=== PATIENT | female | born 1955 | race Caucasian/White ===

== ENCOUNTER 2021-05-10 10:00 | Day surgery (SDC) | payer MEDICARE, BC ==
[~2021-05-10 10:00] MED LIST: Lactated Ringers 1,000 ML IV SCH; Sodium Chloride 0.9% 10 ML Syringe FLUSH PRN
[2021-05-10] MEDS ORDERED: Propofol 200 MG/20 ML SDV ONE ×2 (10:37→10:58)
[2021-05-10 12:06] VITALS: BP 128/72; PULSE 63
--- NOTE | 2021-05-10 13:55 | OR ---
DATE OF SURGERY: 05/10/2021. REFERRING PROVIDER: Parris Sweet DO PRE-OPERATIVE DIAGNOSIS: Screening colonoscopy. The patient does have prior history of colon polyps. Her last colonoscopy done in 12/2013 revealed tortuous redundant colon, but otherwise normal. She was told to repeat in 7 years. There is a positive family history of colon cancer in a grandfather. The patient does have some chronic constipation. POST-OPERATIVE DIAGNOSES: 1. Left-sided [id number]-ev-iuxtzhoa diverticulosis. 2. Tortuous redundant colon. This did require some abdominal pressure and scope maneuvering to obtain cecal intubation. PROCEDURE: Colonoscopy. SURGEON: Faustino De Jesus M.D. ANESTHESIA: Monitored anesthesia care. BOWEL PREP: Good. Natali is a 66-year-old female who was brought to the endoscopy suite after discussing risks and benefits of the procedure. Informed consent was obtained for conscious sedation and colonoscopy with or without biopsy and/or polypectomy. We also discussed possibility of missed lesions. Pre-procedure exam was unremarkable. IV, oxygen, and monitors were placed. The patient was placed in the left lateral decubitus position. Sedation was administered and a digital rectal exam was performed and unremarkable. Colonoscope was passed into the rectum and slowly advanced all the way to the cecum. The patient did have a tortuous redundant colon which did require some scope maneuvering as well as abdominal pressure to obtain cecal intubation. Cecum was viewed and photographed. The colonoscope was slowly withdrawn and the mucosa was closed observed in a direct circumferential manner. The ascending colon was unremarkable. The transverse colon was unremarkable. The descending colon and sigmoid colon were remarkable for [id number] diverticulosis. Retroflexion was performed and rectal mucosa was unremarkable. Scope was removed. The patient tolerated the procedure well. The patient was monitored until that baseline status. Discharge instructions were reviewed and the patient was discharged in good condition. COMPLICATIONS: None. TOTAL TIME: 27 minutes. ESTIMATED BLOOD LOSS: None. RECOMMENDATIONS/FOLLOW-UP: Given the fact that her last 2 colonoscopies have been normal, she is good for 10 years and then can consider repeating at that time depending on health status and personal preference. I would like to kindly thank Parris Sweet for this referral. DMB: 05/10/2021 12:44:20 MODL: 05/10/2021 13:29:19 /[id number]
== END 2021-05-10 12:25 | disposition home or self-care (01) ==
LOC: VM.SDS 10:00
PROVIDERS: ATTEND Family Medicine
DX: Z12.11 Encounter for screening for malignant neoplasm of colon (principal); K63.89 Other specified diseases of intestine; K57.30 Diverticulosis of large intestine without perforation or abscess without bleeding; E03.9 Hypothyroidism, unspecified; E78.5 Hyperlipidemia, unspecified; M54.5 Low back pain; Z86.010 Personal history of colon polyps; Z80.0 Family history of malignant neoplasm of digestive organs; Z88.0 Allergy status to penicillin
CPT/HCPCS: 00812; J2704; J7120

== ENCOUNTER 2023-04-28 11:59 | Emergency (ER) | payer MEDICARE, BC ==
[2023-04-28 12:23] LABS: BASOPHILS PERCENT AUTO 0.3 % (0.2-1.2); EOSINOPHILS PERCENT AUTO 0.4 % (0.0-4.0); HEMATOCRIT 39.3 % (33.0-47.0); HEMOGLOBIN 13.6 g/dL (12.0-16.0); IMMATURE GRAN ABSOLUTE AUTO 0.01 x10^3/uL (0.00-0.07); LYMPHOCYTES PERCENT AUTO 9.2 % (25.0-50.0); MEAN CORPUSCULAR HEMOGLOBIN 32.4 pg (26.0-32.0); MEAN CORPUSCULAR HGB CONC 34.6 g/dL (32.0-36.0); MEAN CORPUSCULAR VOLUME 93.6 fL (78.0-93.0); MONOCYTES ABSOLUTE AUTO 0.7 x10^3/uL (0.0-0.8); MONOCYTES PERCENT AUTO 6.5 % (2.0-11.0); NEUTROPHILS ABSOLUTE AUTO 8.8 x10^3/uL (1.8-7.7); NEUTROPHILS PERCENT AUTO 83.5 % (50.0-80.0); PLATELET COUNT,PLT 216 x10^3/uL (130-400); WHITE BLOOD CELL COUNT,WBC 10.5 x10^3/uL (4.0-10.0)
[2023-04-28 12:47] LABS: A/G RATIO 0.97; ALANINE AMINOTRANSFERASE,ALT 22 U/L (14-59); ALBUMIN 3.8 g/dL (3.4-5.0); ALKALINE PHOSPHATASE 98 U/L (46-116); ANION GAP 11.8 mmol/L (5-15); ASPARTATE AMNIOTRANSFERASE,AST 25 U/L (15-37); BILIRUBIN TOTAL 0.6 mg/dL (0.2-1.0); BLOOD UREA NITROGEN,BUN 18 mg/dL (7-18); C-REACTIVE PROTEIN 1.08 mg/dL (<=0.30); CALCIUM 9.6 mg/dL (8.5-10.1); CARBON DIOXIDE,CO2 29 mmol/L (21-32); CHLORIDE,CL 103 mmol/L (98-107); CREATINE KINASE,CK 58 U/L (26-192); CREATININE 1.1 mg/dL (0.55-1.02); ESTIMATED GFR 54 mL/min (>=60); GLUCOSE RANDOM 107 mg/dL (70-99); POTASSIUM,K 3.8 mmol/L (3.5-5.1); PROTEIN TOTAL,TP 7.7 g/dL (6.4-8.2); SODIUM,NA 140 mmol/L (136-145); URIC ACID 4.7 mg/dL (2.6-6.0)
[2023-04-28 13:10] VITALS: BP 118/57; PULSE 88
[2023-04-28 13:15] LABS: SEDIMENTATION RATE AUTO 22 mm/hr (0-20)
== END 2023-04-28 13:29 | disposition home or self-care (01) ==
LOC: VM.ED 11:59 → SUPCPDRO 11:59 → VM.ED 13:29
DX: M25.562 Pain in left knee (principal); Z79.82 Long term (current) use of aspirin
CPT/HCPCS: 36415; 80053; 82550; 83605; 83735; 84145; 84550; 85025; 85652; 86140; 99283

== ENCOUNTER 2024-10-29 08:03 | Emergency (ER) | payer MEDICARE, BC ==
[2024-10-29 09:50] VITALS: BP 118/78; PULSE 97
== END 2024-10-29 09:12 | disposition home or self-care (01) ==
LOC: VM.ED 08:03
DX: J06.9 Acute upper respiratory infection, unspecified (principal); E78.00 Pure hypercholesterolemia, unspecified; E03.9 Hypothyroidism, unspecified; M19.90 Unspecified osteoarthritis, unspecified site; Z88.0 Allergy status to penicillin; Z88.1 Allergy status to other antibiotic agents; Z79.82 Long term (current) use of aspirin; Z79.52 Long term (current) use of systemic steroids; Z79.890 Hormone replacement therapy; Z79.899 Other long term (current) drug therapy
CPT/HCPCS: 71045; 87428-QW; 99284

== ENCOUNTER 2025-06-23 10:30 | Day surgery (SDC) | payer MEDICARE, BC ==
[~2025-06-23 10:30] MED LIST changes: -Lactated Ringers 1,000 ML IV SCH; +Propofol 200 MG/20 ML SDV ONE; -Sodium Chloride 0.9% 10 ML Syringe FLUSH PRN; +fentaNYL 100 MCG/2 ML SDV ONE
[2025-06-23] MEDS: Lactated Ringers 1,000 ML IV SCH (11:08)
[2025-06-23 12:49] VITALS: BP 120/60; PULSE 71
== END 2025-06-23 13:04 | disposition home or self-care (01) ==
LOC: VM.SDS 10:30
PROVIDERS: ATTEND Family Medicine
DX: K29.50 Unspecified chronic gastritis without bleeding (principal); E03.9 Hypothyroidism, unspecified; N18.31 Chronic kidney disease, stage 3a; E78.00 Pure hypercholesterolemia, unspecified; Z88.0 Allergy status to penicillin; Z88.8 Allergy status to other drugs, medicaments and biological substances; Z79.899 Other long term (current) drug therapy; Z79.890 Hormone replacement therapy
CPT/HCPCS: 00731; 88305; 99100; J2704; J3010; J7120

== ENCOUNTER 2025-07-14 15:51 | Emergency (ER) | payer MEDICARE, BC ==
[2025-07-14] MEDS ORDERED: Sodium Chloride 0.9% 10 ML Syringe FLUSH PRN (15:56)
[2025-07-14 15:57] VITALS: BP 115/59; PULSE 90
[2025-07-14 16:06] LABS: BASOPHILS ABSOLUTE AUTO 0.0 x10^3/uL (0.0-0.2); BASOPHILS PERCENT AUTO 0.0 % (0.2-1.2); EOSINOPHILS ABSOLUTE AUTO 0.0 x10^3/uL (0.0-0.5); EOSINOPHILS PERCENT AUTO 0.0 % (0.0-4.0); IMMATURE GRAN ABSOLUTE AUTO 0.00 x10^3/uL (0.00-0.07); IMMATURE GRAN PERCENT AUTO 0.00 % (0.00-0.43); LYMPHOCYTES ABSOLUTE AUTO 0.5 x10^3/uL (1.0-4.8); LYMPHOCYTES PERCENT AUTO 7.3 % (25.0-50.0); MONOCYTES ABSOLUTE AUTO 0.3 x10^3/uL (0.0-0.8); MONOCYTES PERCENT AUTO 4.4 % (2.0-11.0); NEUTROPHILS ABSOLUTE AUTO 6.2 x10^3/uL (1.8-7.7); PLATELET COUNT,PLT 140 x10^3/uL (130-400); RED BLOOD CELL COUNT 4.14 x10^6/uL (4.00-5.50); WHITE BLOOD CELL COUNT,WBC 7.0 x10^3/uL (4.0-10.0)
[2025-07-14] MEDS: Lactated Ringers 1,000 ML IV ONE (16:09)
[2025-07-14] MEDS: Ondansetron 4 MG/2 ML SDV IVPUSH ONE (16:09)
[2025-07-14 16:14] LABS: NEUTROPHILS PERCENT AUTO 88.3 % (50.0-80.0)
[2025-07-14 16:23] LABS: A/G RATIO 0.78; ALANINE AMINOTRANSFERASE,ALT 20 U/L (14-59); ASPARTATE AMNIOTRANSFERASE,AST 31 U/L (15-37); BILIRUBIN TOTAL 0.5 mg/dL (0.2-1.0); BLOOD UREA NITROGEN,BUN 22 mg/dL (7-18); CARBON DIOXIDE,CO2 26 mmol/L (21-32); CHLORIDE,CL 97 mmol/L (98-107); CREATININE 1.2 mg/dL (0.55-1.02); ESTIMATED GFR 48 mL/min (>=60); GLUCOSE RANDOM 102 mg/dL (70-99); POTASSIUM,K 3.6 mmol/L (3.5-5.1); PROTEIN TOTAL,TP 7.3 g/dL (6.4-8.2); SODIUM,NA 134 mmol/L (136-145)
[2025-07-14 16:37] LABS: GLUCOSE,URINE NEGATIVE (NEGATIVE); OCCULT BLOOD,URINE MODERATE (NEGATIVE)
[2025-07-14 16:39] LABS: APPEARANCE,URINE SLIGHTLY CLOUDY (CLEAR)
[2025-07-14 16:43] LABS: SQUAMOUS EPITHELIAL CELLS,UR FEW /HPF (NOT SEEN)
== END 2025-07-14 17:15 | disposition home or self-care (01) ==
LOC: VM.ED 15:51
DX: K52.9 Noninfective gastroenteritis and colitis, unspecified (principal); E78.00 Pure hypercholesterolemia, unspecified; E03.9 Hypothyroidism, unspecified; N18.9 Chronic kidney disease, unspecified; Z79.899 Other long term (current) drug therapy; Z79.890 Hormone replacement therapy; Z88.0 Allergy status to penicillin; Z88.1 Allergy status to other antibiotic agents
CPT/HCPCS: 36415; 80053; 81001; 85025; 86140; 87045; 87046; 87328; 87329; 87493; 96361; 96374; 99284; J2405; J7120

== ENCOUNTER 2025-07-26 08:57 | Emergency (ER) | payer MEDICARE, BC ==
[2025-07-26 09:29] VITALS: BP 110/60; PULSE 79
== END 2025-07-26 09:27 | disposition left against medical advice (07) ==
LOC: VM.ED 08:57
DX: Z53.21 Procedure and treatment not carried out due to patient leaving prior to being seen by health care provider (principal)